=== PATIENT | male | born 1975 | race Caucasian/White ===

== ENCOUNTER 2018-05-13 13:03 | Observation (INO) ==
[2018-05-13] MEDS ORDERED: NITROGLYCERIN SL 0.4 MG TABLET SL PRN ×2 (13:57→16:07)
[2018-05-13] MEDS ORDERED: ENOXAPARIN 100 MG/ML SYRINGE SUBCUT STA (13:57)
[2018-05-13] MEDS ORDERED: ENOXAPARIN 120 MG/0.8 ML SYRINGE SUBCUT ONE (14:10)
[2018-05-13 14:28] LABS: Basophils % 0.4 % (0.0-0.8); Eosinophils # 0.5 10*3/uL (0.0-0.87); Hematocrit 33.7 VOL% (42.0-52.0); Hemoglobin 10.9 GM/DL (14.0-18.0); Immature Granulocytes % 1.3 %; Immature Granulocytes Absolute 0.09 #; Lymphocytes # 2.3 10*3/uL (1.4-4.0); Lymphocytes % 33.4 % (21.2-54.2); Mean Corpuscular HGB Conc 32.3 GM/DL (32-36); Mean Corpuscular Hemoglobin 30 PG (27-34); Mean Corpuscular Volume 93.6 FL (87-102); Mean Platelet Volume 10.7 FL (9.6-12.0); Monocytes # 0.8 10*3/uL (0.11-0.8); Neutrophils # 3.2 10*3/uL (1.4-7.4); Neutrophils % 46.9 % (38.7-73.9); Platelet Count 286 T/CUMM (130-400); Red Cell Distribution Width 12.8 % (9.3-17.3); White Blood Count 6.8 T/CUMM (4-12)
[2018-05-13 14:38] LABS: Bilirubin,Total 0.4 MG/DL (0.2-1.0); Calcium 8.9 MG/DL (8.5-10.1); Osmolality,Calculated 281.3 MOS/KG (273-304); Potassium 4.4 MMOL/L (3.5-5.1); Total Protein 6.7 G/DL (6.4-8.3)
[2018-05-13] MEDS ORDERED: SODIUM CHLORIDE 0.9% 1,000 ML IV STA (15:01)
[2018-05-13] MEDS ORDERED: traZODone 50 MG TABLET PO PRN (16:07)
[2018-05-13] MEDS ORDERED: ONDANSETRON 4 MG/2 ML VIAL IV PRN (16:10)
[2018-05-13] MEDS ORDERED: ACETAMINOPHEN 325 MG TABLET PO PRN ×2 (16:10)
[2018-05-13] MEDS ORDERED: diphenhydrAMINE CAP 25 MG CAPSULE PO PRN (16:10)
[2018-05-13] MEDS ORDERED: NICOTINE 21 MG/24 HR PATCH TRANSDERM PRN (16:10)
[2018-05-13] MEDS ORDERED: DOCUSATE SODIUM 100 MG CAPSULE PO PRN (16:10)
[2018-05-13] MEDS ORDERED: ALBUTEROL 2.5 MG/3 ML NEB RESP TX PRN (16:25)
[2018-05-13] MEDS ORDERED: PANTOPRAZOLE 40 MG TABLET PO SCH (16:30)
[2018-05-13] MEDS: FUROSEMIDE 40 MG/4 ML VIAL IV SCH (19:05)
[2018-05-13] MEDS: CLOPIDOGREL 75 MG TABLET PO SCH (19:07)
[2018-05-13] MEDS: busPIRone 10 MG TABLET PO SCH (19:07)
[2018-05-13] MEDS: buPROPion 75 MG TABLET PO SCH (19:08)
[2018-05-13] MEDS: GABAPENTIN 400 MG CAPSULE PO SCH ×2 (19:08→21:35)
[2018-05-13] MEDS: LEVOFLOXACIN 750 MG TABLET PO SCH (19:08)
[2018-05-13] MEDS: predniSONE 20 MG TABLET PO SCH (19:08)
[2018-05-13] MEDS: FLUoxetine 20 MG CAPSULE PO SCH (19:09)
[2018-05-13] MEDS: METOPROLOL TARTRATE 50 MG TABLET PO SCH (19:09)
[2018-05-13] MEDS: LORazepam 2 MG/1 ML VIAL IV PRN (19:10)
[2018-05-13] MEDS: ASPIRIN 325 MG TABLET PO SCH (19:10)
[2018-05-13] MEDS: PANTOPRAZOLE 40 MG TABLET PO SCH (19:11)
[2018-05-13] MEDS: MORPHINE 4 MG/1 ML VIAL IV PRN (20:10)
[2018-05-13] MEDS: ALBUTEROL/IPRATROPIUM 3 ML NEB RESP TX SCH (20:42)
[2018-05-13] MEDS ORDERED: OLANZapine 5 MG TABLET PO SCH (21:00)
[2018-05-13] MEDS ORDERED: MIRTAZAPINE 15 MG TABLET PO SCH (21:00)
[2018-05-13] MEDS ORDERED: SUBOXONE SL SCH (21:00)
[2018-05-13] MEDS: BUDESONIDE/FORMOTEROL 160-4.5 INHALER 6 GM INH SCH (21:33)
[2018-05-14] MEDS: MORPHINE 4 MG/1 ML VIAL IV PRN (02:25)
[2018-05-14] MEDS: LORazepam 2 MG/1 ML VIAL IV PRN (02:25)
[2018-05-14 04:25] LABS: Basophils % 0.2 % (0.0-0.8); Eosinophils # 0.2 10*3/uL (0.0-0.87); Eosinophils % 1.9 % (0.00-10.9); Hemoglobin 11.3 GM/DL (14.0-18.0); Immature Granulocytes % 1.6 %; Immature Granulocytes Absolute 0.13 #; Lymphocytes # 1.4 10*3/uL (1.4-4.0); Mean Corpuscular HGB Conc 32.3 GM/DL (32-36); Mean Corpuscular Hemoglobin 30 PG (27-34); Mean Corpuscular Volume 93.1 FL (87-102); Mean Platelet Volume 10.6 FL (9.6-12.0); Monocytes # 0.3 10*3/uL (0.11-0.8); Monocytes % 3.9 % (1.7-12.7); Neutrophils # 6.3 10*3/uL (1.4-7.4); Neutrophils % 75.4 % (38.7-73.9); Platelet Count 308 T/CUMM (130-400); Red Blood Count 3.76 MC/CUMM (3.8-5.5); Red Cell Distribution Width 12.8 % (9.3-17.3); White Blood Count 8.3 T/CUMM (4-12)
[2018-05-14 05:51] LABS: Albumin 3.3 G/DL (3.4-5.0); Bilirubin,Total 0.7 MG/DL (0.2-1.0); Calcium 8.5 MG/DL (8.5-10.1); Osmolality,Calculated 280.7 MOS/KG (273-304); Potassium 3.9 MMOL/L (3.5-5.1); Risk Ratio 5.1
[2018-05-14] MEDS: buPROPion 75 MG TABLET PO SCH (08:18)
[2018-05-14] MEDS: ASPIRIN 325 MG TABLET PO SCH (08:18)
[2018-05-14] MEDS: METOPROLOL TARTRATE 50 MG TABLET PO SCH (08:18)
[2018-05-14] MEDS: GABAPENTIN 400 MG CAPSULE PO SCH ×3 (08:18→16:57)
[2018-05-14] MEDS: CLOPIDOGREL 75 MG TABLET PO SCH (08:19)
[2018-05-14] MEDS: predniSONE 20 MG TABLET PO SCH (08:19)
[2018-05-14] MEDS: FLUoxetine 20 MG CAPSULE PO SCH (08:19)
[2018-05-14] MEDS: busPIRone 10 MG TABLET PO SCH (08:19)
[2018-05-14] MEDS: PANTOPRAZOLE 40 MG TABLET PO SCH (08:23)
[2018-05-14] MEDS: FUROSEMIDE 40 MG/4 ML VIAL IV SCH ×2 (08:24→16:58)
[2018-05-14] MEDS: BUDESONIDE/FORMOTEROL 160-4.5 INHALER 6 GM INH SCH (08:28)
[2018-05-14] MEDS: ALBUTEROL/IPRATROPIUM 3 ML NEB RESP TX SCH ×4 (08:35→18:49)
[2018-05-14] MEDS ORDERED: OMEGA 3 ACID ETHYL ESTERS 1 GM CAPSULE PO SCH (09:00)
[2018-05-14] MEDS ORDERED: ROSUVASTATIN 10 MG TABLET PO SCH (09:00)
[2018-05-14] MEDS: LEVOFLOXACIN 750 MG TABLET PO SCH (17:02)
[2018-05-14 17:10] VITALS: BP 81/51
== END 2018-05-14 19:47 | disposition home or self-care (01) ==
LOC: N.ED 13:03 → N.EDINP 13:03 → N.2W 15:29 → N.TELES 18:15
PROVIDERS: ADMIT Internal Medicine; ATTEND Internal Medicine

== ENCOUNTER 2019-11-06 19:41 | Inpatient (IN) ==
[2019-11-06] MEDS ORDERED: NITROGLYCERIN SL 0.4 MG TABLET SL PRN (20:21)
[2019-11-06] MEDS ORDERED: ACETAMINOPHEN 325 MG TABLET PO PRN (20:52)
[2019-11-06] MEDS ORDERED: DOCUSATE SODIUM 100 MG CAPSULE PO PRN (20:52)
[2019-11-06] MEDS ORDERED: guaiFENesin/DM ER 600-30 MG TABLET PO PRN (20:52)
[2019-11-06 21:02] LABS: Basophils # 0.1 10*3/uL (0.0-0.2); Basophils % 0.5 % (0.0-0.8); Eosinophils # 0.3 10*3/uL (0.0-0.87); Eosinophils % 2.8 % (0.00-10.9); Hematocrit 43.6 VOL% (42.0-52.0); Hemoglobin 13.9 GM/DL (14.0-18.0); Immature Granulocytes % 0.4 %; Immature Granulocytes Absolute 0.05 #; Lymphocytes # 3.3 10*3/uL (1.4-4.0); Lymphocytes % 27.7 % (21.2-54.2); Mean Corpuscular HGB Conc 31.9 GM/DL (32-36); Mean Corpuscular Volume 90.3 FL (87-102); Mean Platelet Volume 9.2 FL (9.6-12.0); Monocytes % 7.7 % (1.7-12.7); Neutrophils % 60.9 % (38.7-73.9); Platelet Count 511 T/CUMM (130-400); Red Blood Count 4.83 MC/CUMM (3.8-5.5)
[2019-11-06 21:22] LABS: Calcium 9.5 MG/DL (8.5-10.1); Osmolality,Calculated 271.2 MOS/KG (273-304)
[2019-11-06 22:16] LABS: Hepatitis B Core IgM Quant < 0.05 Index; Hepatitis B Surface Ag Quant < 0.10 Index; Hepatitis B Surface Ag Result Negative (Negative); Hepatitis C Virus Ab Quant > 11.00 Index; Hepatitis C Virus Ab Result Positive (Negative)
[2019-11-06] MEDS ORDERED: hydrALAZINE 20 MG/1 ML VIAL IV PRN (22:17)
[2019-11-06] MEDS: ALPRAZolam 0.25 MG TABLET PO PRN (23:47)
[2019-11-06] MEDS: LORazepam 2 MG/1 ML VIAL IV PRN (23:48)
[2019-11-06] MEDS: THIAMINE INJ 100 MG, FOLIC ACID INJ 1 MG, MAGNESIUM SULF INJ 2 GM, MULTIVITAMIN INJ 10 ... IV SCH (23:48)
[2019-11-06] MEDS: ENOXAPARIN 40 MG/0.4 ML SYRINGE SUBCUT SCH (23:48)
[2019-11-07] MEDS: LORazepam 2 MG/1 ML VIAL IV PRN ×3 (04:43→21:28)
[2019-11-07] MEDS ORDERED: HydrOXYzine PAMOATE 25 MG CAPSULE PO PRN (05:07)
[2019-11-07] MEDS ORDERED: cloNIDine 0.1 MG TABLET PO PRN (05:11)
[2019-11-07] MEDS: BUPRENORPHINE SL TAB 2 MG TABLET SL SCH ×3 (06:00→21:09)
[2019-11-07] MEDS: chlordiazePOXIDE 25 MG CAPSULE PO SCH ×4 (06:01→23:38)
[2019-11-07 06:19] LABS: Basophils % 0.5 % (0.0-0.8); Eosinophils # 0.4 10*3/uL (0.0-0.87); Eosinophils % 4.3 % (0.00-10.9); Hematocrit 39.7 VOL% (42.0-52.0); Hemoglobin 12.9 GM/DL (14.0-18.0); Immature Granulocytes % 0.5 %; Immature Granulocytes Absolute 0.04 #; Lymphocytes # 3.6 10*3/uL (1.4-4.0); Lymphocytes % 43.5 % (21.2-54.2); Mean Corpuscular HGB Conc 32.5 GM/DL (32-36); Mean Corpuscular Volume 90.2 FL (87-102); Mean Platelet Volume 9.2 FL (9.6-12.0); Monocytes % 9.5 % (1.7-12.7); Neutrophils % 41.7 % (38.7-73.9); Platelet Count 403 T/CUMM (130-400); Red Cell Distribution Width 13.8 % (9.3-17.3); White Blood Count 8.3 T/CUMM (4-12)
[2019-11-07 06:44] LABS: Calcium 8.9 MG/DL (8.5-10.1); Risk Ratio 4.55; VLDL CHOLESTEROL 23.2 MG/DL
[2019-11-07] MEDS: NICOTINE 21 MG/24 HR PATCH TRANSDERM SCH (09:05)
[2019-11-07] MEDS: OMEGA 3 ACID ETHYL ESTERS 1 GM CAPSULE PO SCH (09:06)
[2019-11-07] MEDS: ROSUVASTATIN 10 MG TABLET PO SCH (09:07)
[2019-11-07] MEDS: ASPIRIN 325 MG TABLET PO SCH (09:08)
[2019-11-07] MEDS: METOPROLOL TARTRATE 50 MG TABLET PO SCH (09:08)
[2019-11-07] MEDS: GABAPENTIN 400 MG CAPSULE PO SCH ×4 (09:08→21:09)
[2019-11-07] MEDS: MULTIVITAMIN (CENTRUM) TABLET PO SCH (09:08)
[2019-11-07] MEDS: FOLIC ACID 1 MG TABLET PO SCH (09:08)
[2019-11-07] MEDS: CLOPIDOGREL 75 MG TABLET PO SCH (09:08)
[2019-11-07] MEDS: PANTOPRAZOLE 40 MG TABLET PO SCH (09:09)
[2019-11-07] MEDS: buPROPion 75 MG TABLET PO SCH (09:09)
[2019-11-07] MEDS: THIAMINE 100 MG TABLET PO SCH (09:09)
[2019-11-07] MEDS: PROMETHAZINE 25 MG TABLET PO PRN ×2 (10:16→21:28)
[2019-11-07 10:59] LABS: Barbiturates Screen,Urine Negative (Negative); Benzodiazepines Screen,Urine Positive (Negative); Cannabinoid Screen,Urine Negative (Negative); Opiate Screen,Urine Negative (Negative); Phencyclidine Screen,Urine Negative (Negative)
[2019-11-07] MEDS: ALPRAZolam 0.25 MG TABLET PO PRN ×2 (17:20→23:38)
[2019-11-07] MEDS: ENOXAPARIN 40 MG/0.4 ML SYRINGE SUBCUT SCH (21:09)
[2019-11-07] MEDS: THIAMINE INJ 100 MG, FOLIC ACID INJ 1 MG, MAGNESIUM SULF INJ 2 GM, MULTIVITAMIN INJ 10 ... IV SCH (22:22)
[2019-11-08] MEDS: BUPRENORPHINE SL TAB 2 MG TABLET SL SCH ×3 (04:41→20:34)
[2019-11-08] MEDS: chlordiazePOXIDE 25 MG CAPSULE PO SCH ×3 (04:41→20:34)
[2019-11-08] MEDS: LORazepam 2 MG/1 ML VIAL IV PRN ×3 (07:31→20:34)
[2019-11-08] MEDS: CLOPIDOGREL 75 MG TABLET PO SCH (09:02)
[2019-11-08] MEDS: MULTIVITAMIN (CENTRUM) TABLET PO SCH (09:02)
[2019-11-08] MEDS: ASPIRIN 325 MG TABLET PO SCH (09:02)
[2019-11-08] MEDS: PANTOPRAZOLE 40 MG TABLET PO SCH (09:02)
[2019-11-08] MEDS: GABAPENTIN 400 MG CAPSULE PO SCH ×4 (09:02→20:34)
[2019-11-08] MEDS: METOPROLOL TARTRATE 50 MG TABLET PO SCH (09:02)
[2019-11-08] MEDS: FOLIC ACID 1 MG TABLET PO SCH (09:03)
[2019-11-08] MEDS: ROSUVASTATIN 10 MG TABLET PO SCH (09:03)
[2019-11-08] MEDS: OMEGA 3 ACID ETHYL ESTERS 1 GM CAPSULE PO SCH (09:03)
[2019-11-08] MEDS: NICOTINE 21 MG/24 HR PATCH TRANSDERM SCH (09:03)
[2019-11-08] MEDS: THIAMINE 100 MG TABLET PO SCH (09:04)
[2019-11-08] MEDS: buPROPion 75 MG TABLET PO SCH (09:04)
[2019-11-08] MEDS: LACTULOSE 20 GM/30 ML UDCUP PO SCH ×4 (13:54→23:43)
[2019-11-08] MEDS: PROMETHAZINE 25 MG TABLET PO PRN (15:18)
[2019-11-08] MEDS: ALPRAZolam 0.25 MG TABLET PO PRN (19:56)
[2019-11-08] MEDS: ENOXAPARIN 40 MG/0.4 ML SYRINGE SUBCUT SCH (20:34)
[2019-11-09] MEDS: PROMETHAZINE 25 MG TABLET PO PRN ×3 (00:09→23:05)
[2019-11-09] MEDS: THIAMINE INJ 100 MG, FOLIC ACID INJ 1 MG, MAGNESIUM SULF INJ 2 GM, MULTIVITAMIN INJ 10 ... IV SCH ×2 (00:11→23:05)
[2019-11-09] MEDS: LORazepam 2 MG/1 ML VIAL IV PRN ×4 (00:16→21:56)
[2019-11-09] MEDS: DICYCLOMINE 10 MG CAPSULE PO PRN ×2 (00:21→09:00)
[2019-11-09] MEDS: METHOCARBAMOL 750 MG TABLET PO PRN ×2 (00:21→09:00)
[2019-11-09] MEDS: rOPINIRole 1 MG TABLET PO PRN (00:21)
[2019-11-09] MEDS: LACTULOSE 20 GM/30 ML UDCUP PO SCH ×6 (04:59→21:45)
[2019-11-09] MEDS: BUPRENORPHINE SL TAB 2 MG TABLET SL SCH ×2 (05:34→17:47)
[2019-11-09] MEDS: chlordiazePOXIDE 25 MG CAPSULE PO SCH ×4 (05:34→23:06)
[2019-11-09 05:48] LABS: Calcium 8.8 MG/DL (8.5-10.1)
[2019-11-09] MEDS: ALPRAZolam 0.25 MG TABLET PO PRN ×3 (09:00→21:56)
[2019-11-09] MEDS: OMEGA 3 ACID ETHYL ESTERS 1 GM CAPSULE PO SCH (09:01)
[2019-11-09] MEDS: ROSUVASTATIN 10 MG TABLET PO SCH (09:01)
[2019-11-09] MEDS: buPROPion 75 MG TABLET PO SCH (09:01)
[2019-11-09] MEDS: GABAPENTIN 400 MG CAPSULE PO SCH ×4 (09:02→21:45)
[2019-11-09] MEDS: FOLIC ACID 1 MG TABLET PO SCH (09:02)
[2019-11-09] MEDS: CLOPIDOGREL 75 MG TABLET PO SCH (09:02)
[2019-11-09] MEDS: PANTOPRAZOLE 40 MG TABLET PO SCH (09:02)
[2019-11-09] MEDS: THIAMINE 100 MG TABLET PO SCH (09:02)
[2019-11-09] MEDS: METOPROLOL TARTRATE 50 MG TABLET PO SCH (09:02)
[2019-11-09] MEDS: ASPIRIN 325 MG TABLET PO SCH (09:02)
[2019-11-09] MEDS: NICOTINE 21 MG/24 HR PATCH TRANSDERM SCH ×2 (09:04→21:55)
[2019-11-09] MEDS: MULTIVITAMIN (CENTRUM) TABLET PO SCH (09:11)
[2019-11-09] MEDS: ENOXAPARIN 40 MG/0.4 ML SYRINGE SUBCUT SCH (21:45)
[2019-11-10] MEDS: METHOCARBAMOL 750 MG TABLET PO PRN (02:12)
[2019-11-10] MEDS: rOPINIRole 1 MG TABLET PO PRN (02:12)
[2019-11-10] MEDS: LACTULOSE 20 GM/30 ML UDCUP PO SCH ×4 (02:28→13:23)
[2019-11-10] MEDS: chlordiazePOXIDE 25 MG CAPSULE PO SCH ×2 (05:29→11:13)
[2019-11-10] MEDS: ALPRAZolam 0.25 MG TABLET PO PRN ×2 (05:33→11:15)
[2019-11-10] MEDS: OMEGA 3 ACID ETHYL ESTERS 1 GM CAPSULE PO SCH ×2 (08:09→08:24)
[2019-11-10] MEDS: NICOTINE 21 MG/24 HR PATCH TRANSDERM SCH (08:09)
[2019-11-10] MEDS: LORazepam 2 MG/1 ML VIAL IV PRN (08:09)
[2019-11-10] MEDS: PANTOPRAZOLE 40 MG TABLET PO SCH (08:10)
[2019-11-10] MEDS: GABAPENTIN 400 MG CAPSULE PO SCH ×2 (08:10→13:23)
[2019-11-10] MEDS: CLOPIDOGREL 75 MG TABLET PO SCH (08:10)
[2019-11-10] MEDS: METOPROLOL TARTRATE 50 MG TABLET PO SCH (08:10)
[2019-11-10] MEDS: FOLIC ACID 1 MG TABLET PO SCH (08:10)
[2019-11-10] MEDS: MULTIVITAMIN (CENTRUM) TABLET PO SCH (08:10)
[2019-11-10] MEDS: ROSUVASTATIN 10 MG TABLET PO SCH (08:10)
[2019-11-10] MEDS: THIAMINE 100 MG TABLET PO SCH (08:11)
[2019-11-10] MEDS: buPROPion 75 MG TABLET PO SCH (08:11)
[2019-11-10] MEDS: ASPIRIN 325 MG TABLET PO SCH (08:11)
[2019-11-10 12:07] VITALS: BP 121/72
== END 2019-11-10 15:57 | disposition home or self-care (01) | DRG 897 ==
LOC: N.4E 19:48
PROVIDERS: ADMIT Family Medicine; ATTEND Family Medicine